=== PATIENT | female | born 1980 | race Caucasian/White ===

== ENCOUNTER 2017-10-06 03:23 | Emergency (ER) | payer OTHER ==
[2017-10-06 03:45] LABS: BASOPHIL (%) 0.4 % (0-1); EOSINOPHIL (%) 0.1 % (0-5); HEMATOCRIT 28.7 % (36.0-46.0); HEMOGLOBIN 8.5 G/DL (11.9-15.5); IMMATURE GRANULOCYTE (%) 0.5 % (0.0-0.7); LYMPHOCYTE (%) 23.6 % (15-42); LYMPHOCYTE COUNT 1.9 K/uL (1.0-2.8); MCH 21.9 PG (29.0-34.0); MCHC 29.6 G/DL (30.0-36.0); MCV 73.8 FL (83-99); MONOCYTE (%) 4.7 % (3-12); MONOCYTE COUNT 0.4 K/uL (0-0.8); NEUTROPHIL (%) 70.7 % (45-76); NEUTROPHIL COUNT 5.6 K/uL (1.8-6.4); PLATELET COUNT 350 K/uL (156-360); RBC DIS.WIDTH-CV 17.9 % (11.8-14.6); RBC DIS.WIDTH-SD 47.3 % (39-53); RED BLOOD COUNT 3.89 M/uL (3.80-5.20); WHITE BLOOD COUNT 7.9 K/uL (4.1-10.2)
[2017-10-06 03:49] LABS: AMYLASE 100 IU/L (1-118); CHLORIDE 108 mEq/L (99-109); POTASSIUM 3.1 mEq/L (3.7-5.4); SODIUM 142 mEq/L (136-147)
[2017-10-06 03:50] LABS: GLUCOSE 103 mg/dL (70-99)
[2017-10-06 03:54] LABS: CREATININE 0.8 mg/dL (0.6-1.3); SERUM ETHYL ALCOHOL 217 mg/dL
[2017-10-06 03:55] LABS: UREA NITROGEN (BUN) 6 mg/dL (9-23)
[2017-10-06 03:57] LABS: LIPASE 95 U/L (1.0-51.0)
[2017-10-06 04:03] LABS: QUANTITATIVE HCG < 4.0 MIU/ML
[2017-10-06 04:04] LABS: GFR ESTIMATE (CALCULATED) > 59 mL/min/
[2017-10-06] MEDS ORDERED: NORCO 5/3251 TABLET PO (06:00)
== END 2017-10-06 06:25 | disposition home or self-care (01) ==
LOC: TRA 03:23
PROVIDERS: Emergency Medicine
PROC: 0HQ1XZZ Repair Face Skin, External Approach (ICD-10-PCS; principal; 2017-10-06)
DX: S02.2XXA Fracture of nasal bones, initial encounter for closed fracture (principal); S01.01XA Laceration without foreign body of scalp, initial encounter; S01.81XA Laceration without foreign body of other part of head, initial encounter; E87.6 Hypokalemia; D50.9 Iron deficiency anemia, unspecified; V47.1XXA Car passenger injured in collision with fixed or stationary object in nontraffic accident, initial encounter; Y92.481 Parking lot as the place of occurrence of the external cause; F10.129 Alcohol abuse with intoxication, unspecified; Y90.7 Blood alcohol level of 200-239 mg/100 ml
CPT/HCPCS: 70450; 70486; 72125; 80048; 81003; 82150; 83690; 84702; 85025; 86850; 86900; 86901; 90832; 99281; 99285; G0480; J2405; J3010